=== PATIENT | female | born 1960 | race Caucasian/White ===

== ENCOUNTER → 2023-09-27 | Outpatient (CLI) | payer BC ==
--- NOTE | 2023-09-27 13:24 | CT ---
EXAMINATION TYPE: CT chest w con DATE OF EXAM: 09/27/2023 COMPARISON: None HISTORY: Abn CXR CT DLP: 110.7 mGycm Automated exposure control for dose reduction was used. TECHNIQUE: CT scan of the chest is performed with IV Contrast, patient injected with 100 mL of Isovue 300. MIP Images are created on CT scanner and reviewed. 3D reconstructed images are created on an independent workstation and reviewed. FINDINGS: There are mild pleural parenchymal changes in lung apices. There is no suspicious lung mass or nodule. There is no abnormal airspace/consolidative density. There is no pleural effusion or pneumothorax. There are small focal areas of abnormal interstitial density with bronchiectasis within the lingula a nd anterior right middle lobe reflecting chronic changes. The great vessels chest are normal there is no mediastinal, hilar or axillary adenopathy. Limited scanning through the upper abdomen reveals no gross abnormality. There is a low-density lesio n in the dome of the liver which most likely represents a cyst but cannot be fully characterized with this technique No focal osseous lesions are seen. IMPRESSION: 1. Chronic changes as described above. 2. No suspicious lung mass or nodule. 3. No acute cardiopulmonary disease.
== END | disposition home or self-care (01) ==
LOC: RADCTMAIN 12:35
PROVIDERS: ATTEND Internal Medicine
DX: R93.89 Abnormal findings on diagnostic imaging of other specified body structures (principal)
CPT/HCPCS: 71260; Q9967

== ENCOUNTER → 2023-10-02 | Outpatient (CLI) | payer BC ==
--- NOTE | 2023-10-02 22:06 | US ---
EXAMINATION TYPE: US liver DATE OF EXAM: 10/02/2023 COMPARISON: 09/27/2023 CLINICAL INDICATION: Female, 63 years old with history of K76.89 LIVER CYST; Liver cyst visualized on CT TECHNIQUE: Multiple sonographic images of the right upper quadrant are obtained. FINDINGS: EXAM MEASUREMENTS: Liver Length: 12.3 cm Gallbladder Wall: 0.1 cm CBD: 0.2 cm Right Kidney: 9.3 x 3.5 x 4.3 cm Pancreas: visualized portions appear wnl Liver: small cystic lesion at the level of the diaphragm = 1.0cm. This correlates with the CT exam. Gallbladder: no evidence of stones Evidence for sonographic Langston's sign: no CBD: wnl Right Kidney: no evidence of hydronephrosis IMPRESSION: 1. Hepatic cyst
== END | disposition home or self-care (01) ==
LOC: RADUSWWP 07:10
PROVIDERS: ATTEND Internal Medicine
DX: K76.89 Other specified diseases of liver (principal)
CPT/HCPCS: 76705

== ENCOUNTER → 2024-04-22 | Outpatient (CLI) | payer MEDICARE, BC ==
--- NOTE | 2024-04-22 17:05 | CA ---
Transthoracic Echo Report Name: Rhina Aguila Age: 64 Gender: F : 1960 Exam Date: 04/22/2024 11:36 Exam Location: [facility] Ht (in): 65 Wt (lb): 110 Ordering Physician: Evelio Ortega DO Attending/Referring Phys: Evelio Ortega DO [employer] Dariana Rome RDCS Procedure CPT: Indications: R00.2 palpitations Cardiac Hx: Technical Quality: Good Contrast 1: Total Dose (mL): Contrast 2: Total Dose (mL): MEASUREMENTS (Male / Female) Normal Values 2D ECHO LV Diastolic Diameter PLAX 4.0 cm 4.2 - 5.9 / 3.9 - 5.3 cm LV Systolic Diameter PLAX 2.6 cm IVS Diastolic Thickness 0.8 cm 0.6 - 1.0 / 0.6 - 0.9 cm LVPW Diastolic Thickness 0.8 cm 0.6 - 1.0 / 0.6 - 0.9 cm LV Relative Wall Thickness 0.4 RV Internal Dim ED PLAX 1.9 cm LA Systolic Diameter LX 2.7 cm 3.0 - 4.0 / 2.7 - 3.8 cm LV Diastolic Volume MOD 4C 53.3 cm??? LV Systolic Volume MOD 4C 26.0 cm??? LV Ejection Fraction MOD 4C 51.2 % LV Cardiac Index MOD 4C 1378.5 cm???/min???m??? LV Diastolic Length 4C 6.2 cm LV Systolic Length 4C 5.0 cm LV Diastolic Volume MOD 2C 62.1 cm??? LV Systolic Volume MOD 2C 21.8 cm??? LV Ejection Fraction MOD 2C 64.9 % LV Cardiac Index MOD 2C 2035.4 cm???/min???m??? LV Diastolic Length 2C 7.5 cm LV Systolic Length 2C 6.1 cm M-MODE Aortic Root Diameter MM 2.8 cm LA Systolic Diameter MM 1.8 cm LA Ao Ratio MM 0.6 DOPPLER AV Peak Velocity 146.0 cm/s AV Peak Gradient 8.5 mmHg MR Peak Velocity 591.9 cm/s MR Peak Gradient 140.1 mmHg Mitral E Point Velocity 86.4 cm/s Mitral A Point Velocity 49.7 cm/s Mitral E to A Ratio 1.7 MV Deceleration Time 280.5 ms MV E' Velocity 9.8 cm/s Mitral E to MV E' Ratio 8.8 TR Peak Velocity 205.1 cm/s TR Peak Gradient 16.8 mmHg Right Ventricular Systolic Press 27.1 mmHg FINDINGS Left Ventricle Left ventricular ejection fraction is estimated at 60-65 %. Left ventricular cavity size normal. Left ventricular wall thickness normal. Normal left ventricular wall motion. Right Ventricle Normal right ventricular size and function. Right ventricular systolic pressure within normal limits. Right Atrium Normal right atrial size. No right atrial thrombus or mass seen. Left Atrium Normal left atrial size. No left atrial thrombus or mass present. Mitral Valve Mitral valve thickened. Elongation of the anterior mitral valve leaflet. Mild- to-moderate mitral regurgitation. Aortic Valve Trileaflet aortic valve. No aortic valve stenosis or regurgitation. Tricuspid Valve Structurally normal tricuspid valve. Mild tricuspid regurgitation. Pulmonic Valve Structurally normal pulmonic valve. No pulmonic regurgitation. Pericardium No pericardial or pleural effusion. Aorta Normal size aortic root and proximal ascending aorta. CONCLUSIONS Normal LV function Mild to moderate mitral regurgitation Previewed by: Dr. Omar Buenrostro MD (Electronically Signed) Final Date: 22 April 2024 17:04
== END | disposition home or self-care (01) ==
LOC: RADECHMAIN 11:20
PROVIDERS: ATTEND Internal Medicine
DX: I34.0 Nonrheumatic mitral (valve) insufficiency (principal); I07.1 Rheumatic tricuspid insufficiency; R00.2 Palpitations
CPT/HCPCS: 93306

== ENCOUNTER → 2024-04-23 | Outpatient (CLI) | payer MEDICARE, BC ==
--- NOTE | 2024-05-07 10:10 | P.HOLTER ---
[24] HOUR HOLTER MONITOR : INDICATION: Palpitations R00.2 START DATE: 04/23/2024 END DATE: 04/26/2024 Patient was moitored for 2 days 22 hours 15 minutes FINDINGS: Max HR: 183 BPM Min HR: 53 BPM Average HR: 76 BPM Supra-Ventricular ectopic burden: 0.28% Ventricular ectopic burden: Less than 0.01% There were no signficant atrial fibrillation, atrial flutter, or sustained ventricular tachycardia episodes. There were no high-grade AV blocks There were no significant pauses greater than 2 seconds. Patient reported events of palpitations and other nonspecific symptoms, they corresponded to sinus rhythm. Normal QTc Normal heart rate variability CONCLUSION: Overall nonrevealing 72-hour Holter monitor Please correlate clinically. Gilberto Villagomez MD, FACC, RPVI Thank you for allowing [facility] to participate in this patient's care. Feel free to reach out in case of any followup questions.
--- NOTE | 2024-05-07 11:42 | HM ---
[24] HOUR HOLTER MONITOR : INDICATION: Palpitations R00.2 START DATE: 04/23/2024 END DATE: 04/26/2024 Patient was monitored for 2 days 22 hours 15 minutes FINDINGS: Max HR: 183 BPM Min HR: 53 BPM Average HR: 76 BPM Supra-Ventricular ectopic burden: 0.28% Ventricular ectopic burden: Less than 0.01% There were no significant atrial fibrillation, atrial flutter, or sustained ventricular tachycardia episodes. There were no high-grade AV blocks There were no significant pauses greater than 2 seconds. Patient reported events of palpitations and other nonspecific symptoms, they corresponded to sinus rhythm. Normal QTc Normal heart rate variability CONCLUSION: Overall nonrevealing 72-hour Holter monitor. Please correlate clinically. MTDD
== END | disposition home or self-care (01) ==
LOC: RADECHMAIN 07:19
PROVIDERS: ATTEND Internal Medicine
DX: R00.2 Palpitations (principal)
CPT/HCPCS: 93225